=== PATIENT | male | born 1990 | race African-American/Black ===

== ENCOUNTER 2017-10-13 02:33 | Emergency (ER) | payer SELFPAY ==
[2017-10-13 03:22] LABS: Absolute Lymphocytes (CBC) 1.2 K/uL (0.7-4.9); Absolute Monocytes 0.9 K/uL (0.1-1.3); Absolute Neutrophil 6.7 K/uL (1.8-8.0); Basophils % 0.6 % (0-1.3); Eosinophils % 0.3 % (0-4.4); Hematocrit 43.5 % (39.6-49.0); Lymphocytes % 13.5 % (15.3-44.8); MCH 29.8 pg (27.0-35.0); MPV 7.9 fL (7.6-11.3); Monocytes % 10.3 % (3.3-12.3); RBC Red Blood Cell Count 4.89 M/uL (4.33-5.43)
[2017-10-13 03:26] LABS: BUN Blood Urea Nitrogen 9 mg/dL (6-20); Bicarbonate 24 mEq/L (21-31); Glomerular Filtration Rate > 90 mL/min (=/>90); Glucose Level 107 mg/dL (65-120); Potassium 3.1 mEq/L (3.6-5.0); Sodium Level 136 mEq/L (135-145)
--- NOTE | 2017-10-13 06:54 | EDPHYS ---
Physician Documentation [facility] Name: Tony Carrasco Jr Age: 27 yrs Sex: Male : 1990 Arrival Date: 10/13/2017 Time: 02:34 Bed 6 Private MD: ED Physician Junaid Cuadra HPI: 10/13 06:30 This 27 yrs old Black Male presents to ER via Ambulatory with complaints of Chest Pain. gs 06:30 The patient or guardian reports chest pain that is located primarily in the anterior gs chest wall. The pain does not radiate. Associated signs and symptoms: Pertinent negatives: diaphoresis. The chest pain is described as a heaviness. Duration: The patient or guardian reports a single episode, that lasted 10 minute(s). Severity of pain: At its worst the pain was moderate in the emergency department the pain has resolved. The patient has experienced similar episodes in the past, several times. 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 - Social history:: Smoking status: Patient uses tobacco products, smokes three packs cigarettes per day. Patient uses alcohol, weekly. street drugs, marijuana. ROS: 06:30 All other systems are negative. gs Exam: 06:30 Head/Face: Normocephalic, atraumatic. Eyes: Pupils equal round and reactive to light, gs extra-ocular motions intact. Lids and lashes normal. Conjunctiva and sclera are non-icteric and not injected. Cornea within normal limits. Periorbital areas with no swelling, redness, or edema. ENT: Nares patent. No nasal discharge, no septal abnormalities noted. Tympanic membranes are normal and external auditory canals are clear. Oropharynx with no redness, swelling, or masses, exudates, or evidence of obstruction, uvula midline. Mucous membranes moist. Neck: Trachea midline, no thyromegaly or masses palpated, and no cervical lymphadenopathy. Supple, full range of motion without nuchal rigidity, or vertebral point tenderness. No Meningismus. Chest/axilla: Normal chest wall appearance and motion. Nontender with no deformity. No lesions are appreciated. Cardiovascular: Regular rate and rhythm with a normal S1 and S2. No gallops, murmurs, or rubs. Normal PMI, no JVD. No pulse deficits. Respiratory: Lungs have equal breath sounds bilaterally, clear to auscultation and percussion. No rales, rhonchi or wheezes noted. No increased work of breathing, no retractions or nasal flaring. Abdomen/GI: Soft, non-tender, with normal bowel sounds. No distension or tympany. No guarding or rebound. No evidence of tenderness throughout. Back: No spinal tenderness. No costovertebral tenderness. Full range of motion. Skin: Warm, dry with normal turgor. Normal color with no rashes, no lesions, and no evidence of cellulitis. MS/ Extremity: Pulses equal, no cyanosis. Neurovascular intact. Full, normal range of motion. Neuro: Awake and alert, GCS 15, oriented to person, place, time, and situation. Cranial nerves II-XII grossly intact. Motor strength 5/5 in all extremities. Sensory grossly intact. Cerebellar exam normal. Normal gait. 06:30 Constitutional: The patient appears alert, awake. 06:30 ECG was reviewed by the Attending Physician. Vital Signs: 02:40 BP 119 / 77; Pulse 90; Resp 20 S; Temp 98.2(O); Pulse Ox 99% on R/A; Weight 97.52 kg bb (R); Height 5 ft. 8 in. (172.72 cm) (R); Pain 0/10; 03:56 Pulse 85; Resp 18; Pulse Ox 99% on R/A; tl2 05:04 BP 126 / 70; Pulse 87; Resp 12; Pulse Ox 100% on R/A; tl2 06:13 BP 117 / 66; Pulse 96; Resp 20; Pulse Ox 99% on R/A; tl2 02:40 Body Mass Index 32.69 (97.52 kg, 172.72 cm) bb Pebbles Coma Score: 03:11 Eye Response: spontaneous(4). Verbal Response: oriented(5). Motor Response: obeys bb commands(6). Total: 15. MDM: 02:54 Patient medically screened. 06:30 Differential diagnosis: acute myocardial infarction, coronary artery disease pleurisy. Data reviewed: vital signs, nurses notes. Response to treatment: the patient's symptoms have resolved after treatment, and as a result, I will discharge patient. 10/13 02:54 Order name: Basic Metabolic Panel 10/13 02:54 Order name: CBC with Diff 10/13 02:54 Order name: Troponin (emerg Dept Use Only) 10/13 03:26 Order name: Basic Metabolic Panel; Complete Time: 04:39 EDMS 10/13 03:36 Order name: Troponin (Emerg Dept Use Only); Complete Time: 04:39 EDMS 10/13 03:39 Order name: CBC with Automated Diff; Complete Time: 04:39 EDMS 10/13 02:54 Order name: XRAY Chest (1 view) 10/13 02:54 Order name: EKG; Complete Time: 02:55 10/13 02:54 Order name: Cardiac monitoring; Complete Time: 03:12 10/13 02:54 Order name: EKG - Nurse/Tech; Complete Time: 03:12 10/13 02:55 Order name: IV Saline Lock; Complete Time: 03:12 10/13 02:55 Order name: Labs collected and sent; Complete Time: 03:12 10/13 04:52 Order name: Troponin (emerg Dept Use Only) 10/13 06:47 Order name: Troponin (Emerg Dept Use Only); Complete Time: 06:52 EDMS 10/13 02:55 Order name: O2 Per Protocol; Complete Time: 03:12 10/13 02:55 Order name: O2 Sat Monitoring; Complete Time: 03:12 10/13 03:57 Order name: EKG - Nurse/Tech; Complete Time: 03:57 tl2 EC:30 Rate is 84 beats/min. Rhythm is regular. LA interval is normal. QRS interval is gs prolonged. No Q waves. T waves are Normal. Clinical impression: WPW. Interpreted by me. Administered Medications: No medications were administered Disposition: 10/13/17 06:53 Discharged to Home. Impression: Chest pain, unspecified, Pre-excitation syndrome. - Condition is Stable. - Discharge Instructions: Nonspecific Chest Pain, Bprgj-[id number]-Trulc Syndrome. - Medication Reconciliation Form, Thank You Letter, Antibiotic Education, Prescription Opioid Use form. - Follow up: Bora Bermudez MD; When: 2 - 3 days; Reason: Re-evaluation by your physician. Signatures: Dispatcher [employer] Ketan Colon RN RN sg Aria Soliman RN RN bb Amanda Montano RN RN tl2 Junaid Cuadra MD MD gs
--- NOTE | 2017-10-13 06:54 | ER ---
Nurse's Notes [facility] Name: Tony Carrasco Jr Age: 27 yrs Sex: Male : 1990 Arrival Date: 10/13/2017 Time: 02:34 Bed 6 Private MD: Diagnosis: Chest pain, unspecified;Pre-excitation syndrome Presentation: 10/13 02:38 Presenting complaint: Patient states: he started having chest pain and palpitations bb about 40 mins ago but chest pain has resolved now, pt admits to smoking marijuana tonight. Transition of care: patient was not received from another setting of care. Onset of symptoms was October 13, 2017. Care prior to arrival: None. 02:38 Method Of Arrival: Ambulatory bb 02:38 Acuity: GAYATHRI 3 bb Triage Assessment: 03:08 General: Appears in no apparent distress. Behavior is calm, cooperative. Pain: bb Complains of pain in chest Pain currently is 0 out of 10 on a pain scale. Neuro: Level of Consciousness is awake, alert, obeys commands, Oriented to person, place, time, situation. Cardiovascular: Heart tones S1 S2 present Capillary refill < 3 seconds Patient's skin is warm and dry. Rhythm is sinus rhythm. Respiratory: Respiratory effort is even, unlabored. GI: No deficits noted. No signs and/or symptoms were reported involving the gastrointestinal system. Derm: Skin is dry, Skin is normal, Skin temperature is warm. Musculoskeletal: Circulation, motion, and sensation intact. 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 - Social history:: Smoking status: Patient uses tobacco products, smokes three packs cigarettes per day. Patient uses alcohol, weekly. street drugs, marijuana. Screenin:11 Abuse screen: Denies threats or abuse. Nutritional screening: No deficits noted. bb Tuberculosis screening: No symptoms or risk factors identified. Fall Risk None identified. Assessment: 03:11 Reassessment: No changes from previously documented assessment. see triage assessment. bb 05:04 Reassessment: Patient appears in no apparent distress at this time. Patient and/or tl2 family updated on plan of care and expected duration. Pain level reassessed. Patient is alert, oriented x 3, equal unlabored respirations, skin warm/dry/pink. 06:13 Reassessment: Patient appears in no apparent distress at this time. Patient and/or tl2 family updated on plan of care and expected duration. Pain level reassessed. Patient is alert, oriented x 3, equal unlabored respirations, skin warm/dry/pink. Awaiting results of repeat troponin. 06:14 Pain: Pain does not radiate. Pain began 4 hours ago. ak1 07:14 Reassessment: Patient appears in no apparent distress at this time. No changes from ak1 previously documented assessment. pt and girlfriend asleep in bed at discharged teaching. pt informed of need to follow up. Vital Signs: 02:40 BP 119 / 77; Pulse 90; Resp 20 S; Temp 98.2(O); Pulse Ox 99% on R/A; Weight 97.52 kg bb (R); Height 5 ft. 8 in. (172.72 cm) (R); Pain 0/10; 03:56 Pulse 85; Resp 18; Pulse Ox 99% on R/A; tl2 05:04 BP 126 / 70; Pulse 87; Resp 12; Pulse Ox 100% on R/A; tl2 06:13 BP 117 / 66; Pulse 96; Resp 20; Pulse Ox 99% on R/A; tl2 02:40 Body Mass Index 32.69 (97.52 kg, 172.72 cm) bb Pebbles Coma Score: 03:11 Eye Response: spontaneous(4). Verbal Response: oriented(5). Motor Response: obeys bb commands(6). Total: 15. ED Course: 02:34 Patient arrived in ED. ds1 02:40 Arm band placed on Patient placed in an exam room, on a stretcher, on account installer, bb on pulse oximetry. EKG completed in triage. Results shown to MD. Family accompanied patient. 02:41 Junaid Cuadra MD is Attending Physician. gs 03:00 Initial lab(s) drawn, by me, sent to lab. Inserted saline lock: 20 gauge in right bb antecubital area, using aseptic technique. Blood collected. 03:07 Triage completed. bb 03:11 Patient has correct armband on for positive identification. Placed in gown. Bed in low bb position. Call light in reach. Side rails up X 1. Adult w/ patient. limehouse worker on. Pulse ox on. NIBP on. 03:12 Troponin (emerg Dept Use Only) Sent. bb 03:12 CBC with Diff Sent. bb 03:12 Basic Metabolic Panel Sent. bb 06:14 Patient maintains SpO2 saturation greater than 95% on room air. ak1 06:14 No provider procedures requiring assistance completed. ak1 06:53 Bora Bermudez MD is Referral Physician. 07:05 IV discontinued, intact, bleeding controlled, No redness/swelling at site. Pressure ak1 dressing applied. 07:21 Ketan Wisdom, RN is Primary Nurse. sg Administered Medications: No medications were administered Outcome: :53 Discharge ordered by . 07:05 Discharged to home ambulatory, with family. ak1 07:05 Condition: stable 07:13 Discharge instructions given to patient, Instructed on discharge instructions, follow ak1 up and referral plans. Demonstrated understanding of instructions, follow-up care. 07:21 Patient left the ED. sg Signatures: Ketan Wisdom, RN RN Anny Simmons ds1 Aria Soliman RN RN Juani Avendano RN RN ak1 Amanda Montano RN RN tl2 Junaid Cuadra MD MD
--- NOTE | 2017-10-13 07:56 | EKG ---
Test Date: 2017-10-13 Test Time: 02:51:28 Manager Organizational: MORIS MEASUREMENT RESULTS: Intervals: Rate: 87 WI: 208 QRSD: 96 QT: 358 QTc: 430 [place]: P: 48 WI: 208 QRS: 66 T: -47 INTERPRETIVE STATEMENTS: Normal sinus rhythm LVH with secondary repolarization changes Abnormal ECG Compared to ECG 08/14/2017 11:31:53 Left ventricular hypertrophy now present Ventricular preexcitation no longer present Electronically Signed On 10-13-17 07:56:11 CDT by Bora Bermudez
--- NOTE | 2017-10-13 09:03 | RAD REPORT ---
EXAM DESCRIPTION: RAD - Chest Single View - 10/13/2017 3:09 am CLINICAL HISTORY: Chest pain COMPARISON: August 14 TECHNIQUE: AP portable chest image was obtained 0259 hours . FINDINGS: Lungs are clear. Heart and vasculature are normal. No measurable pleural effusion and no p neumothorax. No gross bony abnormality seen. No acute aortic findings suspected. IMPRESSION: No acute cardiopulmonary process. No significant interval change.
== END 2017-10-13 07:21 | disposition home or self-care (01) ==
LOC: ER 02:33
DX: I45.6 Pre-excitation syndrome (principal); F17.210 Nicotine dependence, cigarettes, uncomplicated; Z88.5 Allergy status to narcotic agent
CPT/HCPCS: 36415; 71045; 80048; 84484; 85025; 93005; 99285

== ENCOUNTER 2018-03-31 09:49 | Emergency (ER) | payer SELFPAY ==
--- NOTE | 2018-03-31 10:38 | ER ---
Nurse's Notes [facility] Name: Tony Carrasco Jr Age: 27 yrs Sex: Male : 1990 Arrival Date: 03/31/2018 Time: 10:06 Bed 3 Private MD: Diagnosis: Cardiac arrest Presentation: 03/31 09:48 Presenting complaint: EMS states: Pt found down by family who reports that pt had c/o ph palpitations and chest discomfort this morning, last seen by family approx 1 hr 40 min prior to being found down, CPR initiated by police, EMS started ACLS protocol, reports that pt received 2 shocks, 4 rounds of epi and 1 bicarb [employer] IN[employer]ER. Family reports hx of WPW syndrome, pt intubated [employer]. Care prior to arrival: CPR via thumper performed by EMS was defibrillated and is still in progress Placed on backboard. Medication(s) given: epinephrine x 4, sodium bicarb x1. Compressions began prior to arrival. 09:48 Method Of Arrival: EMS: [facility] ph 09:48 Acuity: GAYATHRI 1 ph 09:48 Care prior to arrival: Assisted ventilation, Oral intubation, IV initiated. IO to L ph tibia. 09:48 Transition of care: patient was not received from another setting of care. Onset of ph symptoms was March 31, 2018. Initial Sepsis Screen: Does the patient meet any 2 criteria? No. Patient's initial sepsis screen is negative. Does the patient have a suspected source of infection? No. Patient's initial sepsis screen is negative. 11:03 Risk Assessment: Do you want to hurt yourself or someone else? Patient reports no ph desire to harm self or others. Historical: - Allergies: 11:04 Hydrocodone-Acetaminophen; ph - PMHx: 11:04 Heart Murmur; WPW; ph - PSHx: 11:04 None; ph - Immunization history:: Adult Immunizations unknown. - Social history:: Smoking status: unknown. - Ebola Screening: : No symptoms or risks identified at this time. - Unable to obtain history due to: unresponsive. Screenin:44 Abuse screen: Denies threats or abuse. Denies injuries from another. Nutritional ph screening: No deficits noted. Tuberculosis screening: No symptoms or risk factors identified. Fall Risk None identified. Assessment: 09:50 CPR assessment: unresponsive, pupils fixed \T\ dilated, intubated, Ambu ventilation, ph pulses absent w/ compressions. Cardiac rhythm is asystole. General: Appears well groomed, well developed, Behavior is unresponsive. Neuro: Level of Consciousness is unresponsive, Oriented to none Pupils are fixed, dilated, non-reactive. Cardiovascular: Capillary refill is > 3 seconds in bilateral fingers toes Rhythm is asystole. Respiratory: Airway via oral intubation. GI: Abdomen is round. Derm: Skin is intact, is healthy with good turgor, Skin is normal, Skin temperature is cool. 09:50 Pain: Unable to use pain scale. Patient is unresponsive. ph 09:53 Reassessment: Compressions paused for pulse check. Cardiovascular: Rhythm is asystole. ph 09:55 Reassessment: Compressions paused for pulse check. Cardiovascular: Rhythm is asystole. ph 09:58 Reassessment: Compressions paused for pulse check. Cardiovascular: Rhythm is asystole. ph 10:02 Reassessment: Compressions paused for pulse check. Cardiovascular: Rhythm is asystole. ph 10:08 Reassessment: Compressions paused for pulse check. Cardiovascular: Rhythm is asystole. ph 10:11 Reassessment: Compressions paused for ultrasound by ERP, no cardiac activity ph visualized. Cardiovascular: Rhythm is asystole. 10:13 Reassessment: Compressions paused for pulse check, cardiac rhythm asystole, pronounced ph at 1013 by Keith Cohen MD. 10:36 Reassessment: [employer] contacted, Amairani Garcia . Amairani will call back in 1-+1.5 hrs to check on ME case status and home info. 10:50 Reassessment: Judge Nuñez at bedside, no autopsy ordered. ph 12:38 Reassessment: Undertaker at beside, body released to [employer] . ph Vital Signs: 09:50 Temp 97.7(R); ph Isabella Coma Score: 09:50 Eye Response: none(1). Verbal Response: none(1). Motor Response: none(1). Modifying ph Factors: Intubated. Total: 3. ED Course: 09:45 Patient has correct armband on for positive identification. Bed in low position. ph 09:48 Intubation: 7.5 Fr. ETT placed orally. Placement verified by CO2 detector w/ + color ph change, auscultating bilateral breath sounds, Ventilated with Ambu bag. Pt intubated [employer], measures 23 inches at the teeth. 10:02 Assisted provider with central line placement. Set up central line tray. Triple lumen ph line placed in right femoral. Line placed by Keith Cohen MD Placement verified by blood return, Blood was collected. 10:06 Patient arrived in ED. kb 10:13 Keith Cohen MD is Attending Physician. rn 10:24 called and notified [place] [employer] about patient to please eb contact the silo erector. 10:29 Judge Nuñez called back says he is on his way. eb 10:33 Arti Rodrigez, BAILEY is Primary Nurse. ph 10:37 Keith Cohen MD is Pronouncing Provider. rn 10:41 Triage completed. ph 10:50 called and spoke with Toby at the [facility] answering service at [phone]. eb He will notify the home of our request. 11:04 Arm band placed on. ph 11:05 [facility] called and said that they will be here in one hour and forty five eb minutes to scrap picker the patient. Administered Medications: 09:51 Drug: EPINEPHrine 0.1mg/mL 1:10,000 1 mg Route: IVP; Site: Other; ph 10:13 Follow up: Response: Cardiac rhythm is unchanged ph 09:52 Drug: Sodium Bicarbonate 1 amp Route: IVP; Site: Other; ph 10:13 Follow up: Response: Cardiac rhythm is unchanged ph 09:54 Drug: EPINEPHrine 0.1mg/mL 1:10,000 1 mg Route: IVP; Site: Other; ph 10:13 Follow up: Response: Cardiac rhythm is unchanged ph 09:57 Drug: EPINEPHrine 0.1mg/mL 1:10,000 1 mg Route: IVP; Site: Other; ph 10:13 Follow up: Response: Cardiac rhythm is unchanged ph 10:00 Drug: EPINEPHrine 0.1mg/mL 1:10,000 1 mg Route: IVP; Site: Other; ph 10:13 Follow up: Response: Cardiac rhythm is unchanged ph 10:03 Drug: EPINEPHrine 0.1mg/mL 1:10,000 1 mg Route: IVP; Site: right femoral; ph 10:13 Follow up: Response: Cardiac rhythm is unchanged ph 10:05 Drug: NS 0.9% 500 ml Route: IV; Rate: bolus; Site: right femoral; ph 12:11 Follow up: Response: Cardiac rhythm is unchanged; IV Status: Completed infusion ph 10:06 Drug: EPINEPHrine 0.1mg/mL 1:10,000 1 mg Route: IVP; Site: right femoral; ph 10:13 Follow up: Response: Cardiac rhythm is unchanged ph 10:07 Drug: Magnesium Sulfate 1 grams {Note: administered IVP.} Route: IVPB; Infused Over: 1 ph hrs; Site: right femoral; 10:13 Follow up: Response: Cardiac rhythm is unchanged; IV Status: Completed infusion ph 10:10 Drug: EPINEPHrine 0.1mg/mL 1:10,000 1 mg Route: IVP; Site: right femoral; ph 10:13 Follow up: Response: Cardiac rhythm is unchanged ph 10:12 Drug: EPINEPHrine 0.1mg/mL 1:10,000 1 mg Route: IVP; Site: right femoral; ph 10:13 Follow up: Response: Cardiac rhythm is unchanged ph Outcome: 10:13 Outcome Patient ph 12:41 Patient : Time of 10:13 Pronounced by Keith Cohen MD Body to home.ph 12:41 Condition: 12:57 Patient left the ED. Signatures: Darcy Thorne, FINISHING MACHINE OPERATOR AUTOMATIC-C FINISHING MACHINE OPERATOR AUTOMATIC-Ckb Cierra Brown, RN BAILEY Keith Cohen MD MD rn Hall, Patricia, RN RN Romina David RN RN hb Botello, Elizabeth eb Corrections: (The following items were deleted from the chart) 10:41 09:48 Care prior to arrival: CPR via thumper performed by EMS was defibrillated Placed ph on backboard. Medication(s) given: epinephrine x 4, sodium bicarb x1 ph 10:43 09:48 Presenting complaint: EMS states: Pt found down by family who reports that pt had ph c/o palpitations and chest discomfort this morning, last seen by family approx 1 hr 40 min prior to being found down, CPR initiated by police, EMS started ACLS protocol, reports that pt received 2 shocks, 4 rounds of epi and 1 bicarb [employer]. 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
--- NOTE | 2018-03-31 10:38 | EDPHYS ---
Physician Documentation [facility] Name: Tony Carrasco Jr Age: 27 yrs Sex: Male : 1990 Arrival Date: 03/31/2018 Time: 10:06 Bed 3 Private MD: ED Physician Keith Cohen HPI: 03/31 10:30 This 27 yrs old Black Male presents to ER via Unassigned with complaints of CPR. rn 10:30 Preceding the arrest, the patient was found down. The arrest occurred at home. rn Pre-hospital course: The arrest was not witnessed by others. Bystanders at the scene performed CPR. EMS care prior to arrival: initiation of ACLS, ACLS has been in progress for 25 minutes. ACLS details: Initial rhythm was asystole. The presenting rhythm is asystole. Airway: paige tube, Medications given by EMS prior to arrival - Epinephrine IV x 4 doses, Defibrillated X 2, Response to therapy: continued arrest. The patient has not experienced similar symptoms in the past. Family reports was reporting of palpitations earlier today, last seen 1.5 hours prior to arrival, CPR started by police, EMS continued, 25 min ACLS by EMS, had 2 rhythms that appeared like afib delivered 2 shocks, no response. + hx of WPW, no f/u.. Historical: - Allergies: 11:04 Hydrocodone-Acetaminophen; ph - PMHx: 11:04 Heart Murmur; WPW; ph - PSHx: 11:04 None; ph - Immunization history:: Adult Immunizations unknown. - Social history:: Smoking status: unknown. - Ebola Screening: : No symptoms or risks identified at this time. - Unable to obtain history due to: unresponsive. ROS: 10:30 Unable to obtain ROS due to comatose state. rn Exam: 10:30 Constitutional: This is a well developed, well nourished patient, GCS 3, paige tube in rn place Head/Face: Normocephalic, atraumatic. Eyes: pupils 6mm, unreactive Neck: no masses, trachea midline, no crepitus Cardiovascular: no spont cardiac activity Respiratory: equal breath sounds only with bagging Abdomen/GI: slightly distended abd Male : Normal genitalia with no discharge or lesions. MS/ Extremity: No peripheral pulses spont, + good femoral pulse with compressions Neuro: GCS 3 Vital Signs: 09:50 Temp 97.7(R); ph Pebbles Coma Score: 09:50 Eye Response: none(1). Verbal Response: none(1). Motor Response: none(1). Modifying ph Factors: Intubated. Total: 3. Procedures: 14:55 Intubation: Intubated orally using # 4 Cosme blade with 7.5 mm ETT. was successful rn on first attempt. Cricoid pressure applied during procedure. Tube secured at right side of mouth measured 23 cm at teeth. Placement verified by CO2 detector with (+) color change, auscultating bilateral breath sounds, Patient tolerated well. Central Line: the site was prepped with Betadine, in sterile fashion, a triple lumen catheter was inserted, in the right femoral vein, in 1 attempts. placement was verified, by blood return, the site was dressed with Tegaderm, using sterile technique, the patient tolerated the procedure, well. 14:56 CPR: See CPR flow sheet. Initial patient assessment: unresponsive, no respiratory rn effort, pulses present w/ compressions, The presenting cardiac rhythm is asystole. despite ED evaluation and treatment, the patient . CPR was stopped at 10:13. MDM: 10:13 Patient medically screened. rn 10:13 ED course: Time of 10:13, ETCO2< 8, no cardiac activity on u/s. . rn 10:30 Differential diagnosis: arrythmia, cardiac arrest, respiratory arrest. Data reviewed: rn vital signs, nurses notes, and as a result, I will. Response to treatment: There is no appreciated change of the patient's symptoms at this time. 03/31 10:27 Order name: Glucose, Ancillary Testing; Complete Time: 10:29 EDMS Administered Medications: 09:51 Drug: EPINEPHrine 0.1mg/mL 1:10,000 1 mg Route: IVP; Site: Other; ph 10:13 Follow up: Response: Cardiac rhythm is unchanged ph 09:52 Drug: Sodium Bicarbonate 1 amp Route: IVP; Site: Other; ph 10:13 Follow up: Response: Cardiac rhythm is unchanged ph 09:54 Drug: EPINEPHrine 0.1mg/mL 1:10,000 1 mg Route: IVP; Site: Other; ph 10:13 Follow up: Response: Cardiac rhythm is unchanged ph 09:57 Drug: EPINEPHrine 0.1mg/mL 1:10,000 1 mg Route: IVP; Site: Other; ph 10:13 Follow up: Response: Cardiac rhythm is unchanged ph 10:00 Drug: EPINEPHrine 0.1mg/mL 1:10,000 1 mg Route: IVP; Site: Other; ph 10:13 Follow up: Response: Cardiac rhythm is unchanged ph 10:03 Drug: EPINEPHrine 0.1mg/mL 1:10,000 1 mg Route: IVP; Site: right femoral; ph 10:13 Follow up: Response: Cardiac rhythm is unchanged ph 10:05 Drug: NS 0.9% 500 ml Route: IV; Rate: bolus; Site: right femoral; ph 12:11 Follow up: Response: Cardiac rhythm is unchanged; IV Status: Completed infusion ph 10:06 Drug: EPINEPHrine 0.1mg/mL 1:10,000 1 mg Route: IVP; Site: right femoral; ph 10:13 Follow up: Response: Cardiac rhythm is unchanged ph 10:07 Drug: Magnesium Sulfate 1 grams {Note: administered IVP.} Route: IVPB; Infused Over: 1 ph hrs; Site: right femoral; 10:13 Follow up: Response: Cardiac rhythm is unchanged; IV Status: Completed infusion ph 10:10 Drug: EPINEPHrine 0.1mg/mL 1:10,000 1 mg Route: IVP; Site: right femoral; ph 10:13 Follow up: Response: Cardiac rhythm is unchanged ph 10:12 Drug: EPINEPHrine 0.1mg/mL 1:10,000 1 mg Route: IVP; Site: right femoral; ph 10:13 Follow up: Response: Cardiac rhythm is unchanged ph Disposition: 10:30 Critical Care:. . rn Disposition: Patient pronounced on 03/31/18 10:13 by Keith Cohen. Impression: Cardiac arrest. - Released to Train Operations Manager. Critical care time excluding procedures: 10:30 Critical care time: Bedside Care: 25 minutes, Family Intervention: 5 minutes. Total rn time: 30 minutes Signatures: Cierra Brown RN RN iw Nieto, Roman, MD MD rn Hall, Patricia, RN RN ph Corrections: (The following items were deleted from the chart) 10:37 10:13 ED course: Time of 10:23, ETCO2< 8, no cardiac activity on u/s. . rn rn 12:57 10:37 03/31/2018 10:37 Patient pronounced on 03/31/2018 at 10:13 by Keith Cohen. iw Impression: Cardiac arrest. Released to Train Operations Manager. rn
== END 2018-03-31 12:57 ==
LOC: ER 09:49
PROC: 0BH17EZ Insertion of Endotracheal Airway into Trachea, Via Natural or Artificial Opening (ICD-10-PCS; principal; 2018-03-31)
PROC: 06HM33Z Insertion of Infusion Device into Right Femoral Vein, Percutaneous Approach (ICD-10-PCS; 2018-03-31)
PROC: 5A12012 Performance of Cardiac Output, Single, Manual (ICD-10-PCS; 2018-03-31)
DX: I46.9 Cardiac arrest, cause unspecified (principal); I45.6 Pre-excitation syndrome; R40.20 Unspecified coma; R40.2432 Glasgow coma scale score 3-8, at arrival to emergency department; Z88.5 Allergy status to narcotic agent
CPT/HCPCS: 31500; 82962; 92950; 99285